=== PATIENT | male | born 1950 | race Caucasian/White ===

== ENCOUNTER → 2016-11-18 | Outpatient (CLI) | payer OTHER ==
[~2016-11-18] MED LIST: ACET-1138 PO; ALPHTAB9 PO; ASPEC81 PO; BIOF500T PO; CHOL100010 PO; CIPR1TAB11 PO; CLON0.5T3 PO; COENCAP9 PO; CYAN10005 PO; DUTA1CAP3 PO; GLYCINE PO; HYDR-5688 PO; LEVO1CAP6 PO; MAGN1TAB16 PO; METH1LOZ SL; OMEG10007 PO; ONDA8TAB6 PO; RXC5 PO; SACC250C11 PO; SNK PO; TAMS0.4C38 PO; ZOLP5TAB PO; [UNRECOGNIZED DRUG - CODE] EX; [UNRECOGNIZED DRUG - CODE] PO; [UNRECOGNIZED DRUG - OTHER] PO
--- NOTE | 2016-11-18 11:45 | DIAGNOSTIC IMAGING REPORT ---
SCROTAL ULTRASOUND CLINICAL HISTORY: Spermatocele. COMPARISON STUDY: Testicular ultrasound July 26, 2016. TECHNIQUE: Grayscale and color and duplex Doppler sonography of the scrotum was performed. FINDINGS: The right testis measures 5.1 x 2.2 x 3 cm and the left measures 5.5 x 2.5 x 3.4 cm. Color flow within each testis was symmetric. There was no testicular mass. There were a few tiny right epididymal cyst. Note is made of a 9 x 7.5 x 4.7 cm hypoechoic abnormality within the left epididymis that contained low level internal echoes and a thin septation. IMPRESSION: 1. Normal sonographic appearance the testes. 2. 9 x 7.5 x 4.7 cm abnormality within the left epididymis. The appearance favors a large spermatocele. This is either stable or minimally increased in size since ultrasound of July 26, 2016 when allowing for measurement variability. Electronically signed by: Lenard Elizondo M.D. 11/18/2016 11:43 AM Dictated Date/Time: 11/18/2016 11:41 AM
== END | disposition home or self-care (01) ==
LOC: C.ULTR 11:09
PROVIDERS: ATTEND Internal Medicine
DX: N43.40 Spermatocele of epididymis, unspecified (principal)

== ENCOUNTER → 2017-05-21 | Outpatient (CLI) | payer OTHER ==
[~2017-05-21] MED LIST changes: -ACET-1138 PO; -ASPEC81 PO; -CLON0.5T3 PO; -CYAN10005 PO; -ONDA8TAB6 PO; -RXC5 PO; -SNK PO; -[UNRECOGNIZED DRUG - CODE] EX
== END | disposition home or self-care (01) ==
LOC: C.LAB1850 13:46
PROVIDERS: ATTEND Urology
DX: N39.0 Urinary tract infection, site not specified (principal)

== ENCOUNTER 2017-05-27 09:08 | Day surgery (SDC) | payer OTHER ==
[2017-05-14 13:41] VITALS: BMI 25.0
--- NOTE | 2017-05-14 14:20 | PAT Medication Instructions ---
Service Date May 14, 2017. Current Home Medication List Acetylcarnitine Hcl (Nutrient) (Acetyl L-Carnitine), 1 CAP PO QAM Alpha-Lipoic Acid (Thioctic Ac (Alpha Lipoic Acid), 300 MG PO QAM Bioflavonoid Products (Kailey-C), PO QPM Cholecalciferol (Vitamin D), 2,500 INTER.UNIT PO QAM Coenzyme Q27-Tmfl Oil-Vitamin (Co-Q 10 [place]-3 Fish Oil), 200 MG PO QAM Dutasteride (Dutasteride), 1 CAP PO QAM Fish Oil ([place]-3), 1,000 MG PO QPM Levocarnitine L-Tartrate (L-Carnitine), 250 MG PO QAM Magnesium (Chelated Magnesium), 250 MG PO QAM Methylcobalamin (Methyl B-12), 1 DOSE SL QPM Saccharomyces Boulardii (Probiotic), PO QPM Tamsulosin Hcl (Flomax), 0.4 MG PO QPM Zolpidem Tartrate (Ambien), 5 MG PO HS PRN for Sleep [Glycine ], 1,000 MG PO QAM [Ps 150], 150 MG PO QAM Medication Instructions For Your Scheduled Surgery - Hold the following medications starting 05/14/17: Fish Oil ([place]-3), 1,000 MG PO QPM Coenzyme X97-Besm Oil-Vitamin (Co-Q 10 [place]-3 Fish Oil), 200 MG PO QAM - Hold the following medications the morning of surgery: Magnesium (Chelated Magnesium), 250 MG PO QAM Dutasteride (Dutasteride), 1 CAP PO QAM [Glycine ], 1,000 MG PO QAM Alpha-Lipoic Acid (Thioctic Ac (Alpha Lipoic Acid), 300 MG PO QAM Levocarnitine L-Tartrate (L-Carnitine), 250 MG PO QAM [Ps 150], 150 MG PO QAM Acetylcarnitine Hcl (Nutrient) (Acetyl L-Carnitine), 1 CAP PO QAM Cholecalciferol (Vitamin D), 2,500 INTER.UNIT PO QAM - Take the following medications as scheduled the night before surgery: Zolpidem Tartrate (Ambien), 5 MG PO HS PRN for Sleep Tamsulosin Hcl (Flomax), 0.4 MG PO QPM Saccharomyces Boulardii (Probiotic), PO QPM Methylcobalamin (Methyl B-12), 1 DOSE SL QPM Bioflavonoid Products (Kailey-C), PO QPM If you have any questions please call us at [phone] or [phone] or [phone]
--- NOTE | 2017-05-14 14:47 | DIAGNOSTIC IMAGING REPORT ---
CHEST PREADMISSION(PA/LAT) CLINICAL HISTORY: Preoperative chest COMPARISON STUDY: 05/23/2016 FINDINGS: The cardiac and mediastinal contours are normal. There is no evidence of focal pulmonary consolidation. There is no evidence of failure. No pleural effusions are visualized.[ IMPRESSION: No active disease in the chest. Electronically signed by: Samir De Souza M.D. 05/14/2017 2:46 PM Dictated Date/Time: 05/14/2017 2:45 PM
[2017-05-14 16:10] LABS: BASO % 0.8 %; BASO ABS # 0.04 K/uL (0-0.2); COMPLETE YES; HEMATOCRIT 43.5 % (42-52); LYMPH ABS # 1.38 K/uL (1.2-3.4); MEAN CELL VOLUME 89.1 fL (80-100); MEAN CORPUSCULAR HEMOGLOBIN 29.3 pg (25-34); MEAN CORPUSCULAR HGB CONC 32.9 g/dl (32-36); MEAN PLATELET VOLUME 10.9 fL (7.4-10.4); MONO % 7.2 %; PLATELET COUNT 132 K/uL (130-400); RED BLOOD COUNT 4.88 M/uL (4.7-6.1); WHITE BLOOD COUNT 5.11 K/uL (4.8-10.8)
[2017-05-14 16:14] LABS: URINE APPEARANCE CLOUDY (CLEAR); URINE BILIRUBIN NEG (NEG); URINE COLOR YELLOW; URINE NITRITE NEG (NEG); URINE SPECIFIC GRAVITY 1.027 (1.000-1.030); UROBILINOGEN NEG (NEG)
[2017-05-14 16:18] LABS: MANUAL MICROSCOPIC REQUIRED? NO; REVIEW REQ? NO
[2017-05-14 16:27] LABS: BUN/CREATININE RATIO 23.2 (10-20); CALCIUM 9.2 mg/dl (8.5-10.1); POTASSIUM 4.6 mmol/L (3.5-5.1)
[~2017-05-27] VITALS: Ht 188 cm; Wt 87.0 kg
[~2017-05-27 09:08] MED LIST changes: -CIPR1TAB11 PO; +CIPROFLOXACIN / D5W 400 MG IV SCH; -HYDR-5688 PO; +LACTATED RINGER'S 1000ML 1,000 ML IV SCH
[2017-05-27] MEDS ORDERED: CIPR1TAB11 PO (09:35)
[2017-05-27 09:36] VITALS: BP 148/90; PULSE 55; TEMP 36.8; O2SAT 98; Ht 188 cm; Wt 87.0 kg
[2017-05-27] MEDS ORDERED: PHENYLEPHRINE 100MCG/ML 5ML SYR IV PRN (11:15)
[2017-05-27] MEDS ORDERED: ATROPINE SULFATE 0.1 MG/ML 5ML SYR IV PRN (11:15)
[2017-05-27] MEDS ORDERED: HYDROmorphone INJ 2 MG/ML SYR/VIAL IV PRN (11:15)
[2017-05-27] MEDS ORDERED: EpHEDrine SULFATE INJ 50 MG/ML AMP IV PRN (11:15)
[2017-05-27] MEDS ORDERED: ONDANSETRON INJ 2 MG/ML 2 ML VIAL IV PRN (11:15)
--- NOTE | 2017-05-27 11:21 | History & Physical Bridge Note ---
H&P Re-Evaluation Bridge Note: I have examined the patient, reviewed the History & Physical and in the interval since the performance of the History & Physical I have noted the following changes of clinical significance: No changes noted Spermatocelectomy and flexible cystoscopy
[2017-05-27] MEDS ORDERED: MIDAZOLAM HCL 1 MG/ML 2ML VIAL ONE (11:22)
[2017-05-27] MEDS ORDERED: DEXAMETHASONE SOD INJ 4 MG/ML VIAL ONE (11:22)
[2017-05-27] MEDS ORDERED: LIDOCAINE HCL 2% 2 ML VIAL (20MG/ML) ONE (11:22)
[2017-05-27] MEDS ORDERED: ONDANSETRON INJ 2 MG/ML 2 ML VIAL ONE (11:22)
[2017-05-27] MEDS ORDERED: FENTANYL CITRATE INJ 50 MCG/1 ML 2 ML VIAL ONE ×2 (11:22→11:48)
[2017-05-27] MEDS ORDERED: PROPOFOL IV EMULSION 10 MG/ML 20 ML VIAL IV ONE (11:22)
[2017-05-27] MEDS ORDERED: BUPIVACAINE 0.5 % 5 MG/1 ML MPF 30ML VIAL ONE (11:26)
[2017-05-27] MEDS ORDERED: BACITRACIN OINT 15 GM TUBE ONE (11:26)
[2017-05-27] MEDS ORDERED: SODIUM CHLORIDE 0.9% 1000ML 1,000 ML IV SCH (13:03)
[2017-05-27] MEDS ORDERED: HYDR-5688 PO (13:05)
--- NOTE | 2017-05-27 13:08 | Discharge Instructions ---
Discharge Instructions Date of Service May 27, 2017. Admission Reason for Admission: Spermatocele Discharge Discharge Diagnosis / Problem: spermatocele Discharge Goals Goal(s): Decrease discomfort, Improve function, Increase independence, Improve disease control, Prevent Disease Progression Activity Recommendations Activity Limitations: per Instructions/Follow-up section Lifting Limitations: no more than 25 pounds Exercise/Sports Limitations: gradually increase as tolerated May Resume Sexual Activity: when tolerated Shower/Bathe: tomorrow Driving or Machine Use: resume 1 day after discharge Please keep your follow-up appointment scheduled for tomorrow morning . Instructions / Follow-Up Instructions / Follow-Up Please apply bacitracin to the incision twice per day for the next 2 weeks Discharge Diet Recommended Diet: Regular Diet Procedures Procedures Performed: Left Spermatocelectomy and hydrocelectomy, with Flexible Cystoscopy Pending Studies Studies pending at discharge: no Medical Emergencies . Who to Call and When: Medical Emergencies: If at any time you feel your situation is an emergency, please call 911 immediately. . Non-Emergent Contact Non-Emergency issues call your: Urologist Call Non-Emergent contact if: you have a fever, temperature is above 101.5, your pain is not controlled, your pain is worsening, wound has increased drainage, wound has increased redness, wound has increased pain . . "Provider Documentation" section prepared by Rob Flores. . VTE Core Measure Inpt VTE Proph given/why not?: Treatment not indicated [place] Drug Monitoring Program Search Results: patient reviewed within database, no issues identified
[2017-05-27] MEDS ORDERED: ACETAMINOPHEN 325 MG TAB PO PRN (13:15)
[2017-05-27] MEDS ORDERED: OXYCODONE/ACETAMINOPHEN 5-325 TAB PO PRN ×2 (13:15)
--- NOTE | 2017-05-27 13:16 | [facility] Operative Report ---
Operative Report Operative Date May 27, 2017. Pre-Operative Diagnosis Left spermatocele Post-Operative Diagnosis left spermatocele and left hydrocele; bladder diverticuli Procedure(s) Performed Left Spermatocelectomy and hydrocelectomy, with Flexible Cystoscopy Surgeon Dr Cantu Respiratory Therapist Surgeon(s) none Estimated Blood Loss 5ml Findings Left spermatocele 2; small left hydrocele; BPH with lateral lobe hypertrophy; numerous bladder diverticuli; erythema and inflammation of the right lateral bladder wall Specimens a. left hydrocele b. left spermatocele Drains 18 Danish coud catheter; Hardaway drain Anesthesia Gen. Complication(s) None Disposition Recovery Room / PACU (stable) Indications Large left spermatocele; prior urinary retention Description of Procedure William Mejia was identified in the preoperative holding area appropriate informed consents were reviewed and completed and the patient was transported to the operating suite. Upon arrival he received appropriate preoperative antibiotics in the form of ciprofloxacin, general anesthesia was induced, and he was sterilely prepped and draped in standard fashion. Beginning the case by making a midline raphae incision and the scrotum. Length of this incision was proximally 4 cm. I carefully dissected through dartos fascia until I was able to deliver the left testis including hydrocele and spermatocele through the incision. I then gently skeletonize the hydrocele prior to opening and draining the hydrocele, a small amount of redundant tunical vaginalis was excised and sent off the table as a specimen. And then further dissected the spermatoceles until I was able to identify and neck connecting to the epididymis. There were 2 distinct spermatoceles each of these had a separate communication to the epididymis and each was sutured suture-ligated. I confirmed excellent hemostasis throughout the scrotum and around the testis and subsequently placed a drain to the most dependent portion of the left hemiscrotum. A string was sutured in place using a 3-0 nylon. I then proceeded to close the scrotal wall in 2 layers with dartos fascia reapproximated using 0 Vicryl followed by closure of the skin with vertical mattress fashion stitches of 3-0 chromic. I infiltrated the skin and the cord with half percent Marcaine. We then moved on to the second portion of the procedure the cystoscopy. Cystoscopic findings: Patient has no evidence of urethral stricture disease he does however have bilobar hypertrophy of his prostate and a modestly high bladder neck. I performed a full inspection of the bladder identifying several diverticuli surrounding the bladder neck the 2 largest diverticuli were on the right. Ureteral orifices were identified neither was involved with a diverticulum. There were no clear tumors visualized throughout the bladder, however he has significant inflammation and edema adjacent to one of the diverticuli on the right. I inspected all of these diverticuli carefully and saw no tumors within them. He has recently been treated for urinary tract infection and I presume that this inflammation and edema are secondary to this infection, however in the future I will reevaluate these to ensure complete resolution. If his symptoms determine need he would be a candidate for either a TURP or a urolift procedure. Before concluding the case I placed an 18 Danish coud catheter drain the bladder. Patient was subsequently extubated and taken to the PACU in stable condition. I attest to the content of the Intraoperative Record and any orders documented therein. Any exceptions are noted below.
[2017-05-27 13:35] VITALS: BP 144/80; PULSE 61; TEMP 36.6; O2SAT 98
--- NOTE | 2017-05-27 13:49 | Anesthesiology Progress Note ---
Anesthesia Post Op Note Date & Time May 27, 2017 at 13:48 Vital Signs Pain Intensity: 2 Vital Signs Past 12 Hours Date Time Temp Pulse Resp B/P (MAP) Pulse Ox O2 Delivery O2 Flow Rate FiO2 05/27/17 13:25 36.3 51 10 135/85 98 Room Air 05/27/17 13:15 54 18 132/84 95 Room Air 05/27/17 13:05 54 12 135/84 95 Room Air 05/27/17 12:55 59 10 135/84 95 Room Air 05/27/17 12:47 36.2 66 13 137/84 98 Mask 10 05/27/17 09:36 36.8 55 18 148/90 (109) 98 Room Air Notes Mental Status: alert / awake / arousable, participated in evaluation Pt Amnestic to Procedure: Yes Nausea / Vomiting: adequately controlled Pain: adequately controlled Airway Patency, RR, SpO2: stable & adequate BP & HR: stable & adequate Hydration State: stable & adequate Anesthetic Complications: no major complications apparent
[2017-05-27 14:05] VITALS: BP 152/84; PULSE 55; O2SAT 98
[2017-05-27 14:35] VITALS: BP 149/82; PULSE 52; TEMP 36.5; O2SAT 98
== END 2017-05-27 15:45 | disposition home or self-care (01) ==
LOC: C.ACU 09:08
PROVIDERS: ATTEND Urology
DX: N43.3 Hydrocele, unspecified (principal); N43.42 Spermatocele of epididymis, multiple; N32.3 Diverticulum of bladder; N40.0 Benign prostatic hyperplasia without lower urinary tract symptoms; N13.8 Other obstructive and reflux uropathy; R33.9 Retention of urine, unspecified; G62.9 Polyneuropathy, unspecified; R73.03 Prediabetes; G25.81 Restless legs syndrome; G62.0 Drug-induced polyneuropathy; Z87.440 Personal history of urinary (tract) infections; Z96.649 Presence of unspecified artificial hip joint; Z80.0 Family history of malignant neoplasm of digestive organs; Z82.49 Family history of ischemic heart disease and other diseases of the circulatory system

== ENCOUNTER → 2017-08-07 | Outpatient (CLI) | payer OTHER ==
[~2017-08-07] MED LIST changes: +CIPR1TAB11 PO; -CIPROFLOXACIN / D5W 400 MG IV SCH; +HYDR-5688 PO; -LACTATED RINGER'S 1000ML 1,000 ML IV SCH
--- NOTE | 2017-08-08 06:01 | PAP/PSG TECHNICIAN REPORT ---
[facility] Tubing Supervisor Polysomnogram Report Study name: None Report date: 08/08/2017 Study date: 08/07/2017 Referring Physician: DR. GONZÁLES PRO Name: KWAME MORALES Interpreting Physician: Kieran Wiseman M.D. Date of : 1950 Tubing Supervisor: Danielle Maya RPSGT. Sex: Male Age: 67 StudyType: PSG Weight: 205 lbs Height: 67 years, Height 6' 2" BMI: 26.32 Medications: Dutasteride 0.5 mg, Tamsulosin 0.4 mg, Acetyl L- Carnitine 250 mg, CoQ10 100 mg, Omeag 3 1000 mg, Zolpidem Tartrate 10 mg, Alpha-Lipoic 100 mg, Chelated Magnesium, Vitamin E20-Pdzab Acid 500-400 MCG, Vitamin D 3 2000 units Patient History 67 yr. old male here tonight for a diagnostic sleep study in room 4. Patient complains of EDs, and needing a nap daily. He also snores. Patients [place] Sleepiness Scale Score is 14/24. Parameters Monitored NPSG: E1-M2, E2-M1, Fp1-M2, Fp2-M1, F3-M2, F4-M2, F4-M1, C3-M2, C4-M2, C4-M1, O1-M2, O2-M2, O2-M1, T3-M2, T4-M1, P3-M2, P4-M1, CHIN1, CHIN2, HR, EKG, Legs, PFLOW, SNOR, FLOW, CFLOW, Tidal Volume, THOR, ABDO, SpO2, PLTH, CPRESS, ETCO2 Wave, ETCO2, pH Sleep Architecture Sleep Stages Time at Lights Off 10:28:38 PM STAGES Time (min.) TST (%) Time at Lights On 5:42:08 AM Wake 114.0 -- Total Recording Time (TRT) 433.50 min. N1 24.0 8 Total Sleep Period (TSP) 393.0 min. N2 201.0 63 Total Sleep Time (TST) 319.5min. N3 40.0 13 Awake Time 114.0 min. REM 54.5 17 Wake after Sleep Onset 74.5 min. Sleep Efficiency (SE) 74 % Sleep Onset Latency (TERRI) 39.5 min. Number of Stage 1 Shifts None Awakenings 23 Stage Changes 70 Number of REM periods 7 REM 54.5 17 REM Latency 116.0 min. NREM 265.0 83 Body Position Analysis Supine Right Left Side Prone Vertical Total Sleep Time (min.) 187.2 104.0 54.5 158.55 0.0 33.0 Total Sleep Time (%) 50% 33% 17% 50 0% N/A% Total Sleep Time REM (min.) 17.1 37.4 0.0 None 0.0 0.0 Total Sleep Time NREM (min.) 143.8 66.7 54.5 None 0.0 0.0 Intermittent Wake (min.) 26.2 39.3 15.4 None 0.0 33.0 Total Sleep Period (%) 47% None None None None None Arousals Myoclonus (PLM) * Events Count Index Events Count Index Spontaneous 1 0 Events Awake (PLMW) 113 59.5 Respiratory 1 0.4 Events Asleep w/ Arousal (PLMA) 17 3.2 PLM 17 3 Events Asleep w/o Arousal (PLMS) 244 45.8 Snoring 3 1 Total Asleep 261 49.0 Total 22 4 Total 374 52 Respiratory Analysis * CA OA MA CH H RERA Total Count 0 0 0 0 22 0 22 Index 0.0 0.0 0.0 0 4.1 0 4.1 Mean Duration 0.0 0.0 0.0 0.00 23.1 0.0 23.1 Longest Duration 0.0 0.0 0.0 0.00 0.0 0.0 34.8 Respiratory Event Summary Total Supine ~Supine Right Left Prone REM NREM Apneas Count 0 0 0 0 0 N/A 0 0 Index 0.0 0 0 0.0 0.0 N/A 0 0 Hypopneas (4% Desat) Count 22 10 12 10 2 N/A 8 14 Index 4.1 3.7 5 5.8 2.2 N/A 8.8 3.2 Apneas & All Hypopneas Count 22 10 12 10 2 N/A 8 14 Index 4.1 4 5 6 2 N/A 8.8 3.2 Respiratory Events (Gut Carrier+All Hyp+RERA) Count 22 10 12 10 2 N/A 8 14 Index 4.1 4 5 5.8 2.2 N/A 8.8 3.2 Respiratory Related Arousal Count 1 10 1 1 0 N/A 1 1 Index 0.4 0 0 1 0 N/A 1 0 Snoring Analysis Supine Right Left Prone REM NREM Total Snore duration 0.5 min Snores count 9 17 1 N/A 9 18 27 Snore mean duration 1.2 Sec Snores index 3 10 1 N/A 9.9 4.1 5.1 TST with snoring (%) 0.2% Desaturation Event Summary: Minimum %SpO2 Event Count Mean/Min/Max Duration(sec.) Desaturation Index % Time In Bed > 90 29 34.5 / 17.5 / 60.0 15.1 27.0 86 - 90 22 32.9 / 10.3 / 56.8 4.4 70.4 81 - 85 2 37.0 / 30.8 / 43.3 10.8 2.6 76 - 80 0 N/A 0.0 0.0 71 - 75 0 N/A 0.0 0.0 66 - 70 0 N/A 0.0 0.0 61 - 65 0 N/A 0.0 0.0 56 - 60 0 N/A 0.0 0.0 51 - 55 0 N/A 0.0 0.0 < 50 0 N/A 0.0 0.0 Total REM NREM Awake <50% 0.0 min. 0.0 min. 0.0 min. 0.0 min. 51 - 60% 0.0 min. 0.0 min. 0.0 min. 0.0 min. 61 - 70% 0.0 min. 0.0 min. 0.0 min. 0.0 min. 71 - 80% 0.1 min. 0.0 min. 0.0 min. 0.1 min. 81 - 90% 312.6 min. 51.2 min. 233.5 min. 27.9 min. 91 - 100% 115.6 min. 3.3 min. 31.5 min. 80.8 min. Average 89 88 88 91 Minimum SpO2 80 81 81 80 Desaturation Event Index 5.4 9.9 4.3 6.8 # Desat. Events below 89% 29 9 14 6 Time(%) with Saturation below 89% 42.1 6.5 34.4 1.3 Time(min.) with Saturation below 89% 180.5 27.7 147.2 5.6 Time (mins) REM (mins) NREM (mins) % of TST SpO2 Below 90% 27 9 N18 75.9 SpO2 Below 88% 12 0 0 29 Heart Rate Analysis Min (bpm) Max (bpm) Average (bpm) Awake 44 81 53 NREM 43 78 49 REM 44 65 51 Overall 43 78 49 Supplemental O2 Values Minimum O2 level: None Value Start Time End Time Tubing Supervisor Comments Mr. Morales slept in the right, left, and supine positions. No cardiac arrhythmia and PLMs noted. No bruxism noted. Snoring was noted and scored as a 1 on a scale of 0 through 5. (0=no snoring, 5=snoring loud enough to be heard through a closed door or down the [address] way)Mr. Morales awoke to use the restroom once during the night. Mr. Morales stated, that was a bad night, but I have those sometimes. The final report will be interpreted and signed by a sleep physician. The completed physician report will then be placed in the patient medical record. Therapy (cm H2O) 0 TIB (min.) 433.5 TST (min.) 319.5 Sleep Onset (min.) 39.5 REM Onset From Sleep (min.) 116.0 Sleep Efficiency % 74 Wakefulness (%) 26 Wakefulness (min.) 114.0 NREM 1 (%) 8 NREM 1 (min.) 24.0 NREM 2 (%) 63 NREM 2 (min.) 201.0 NREM 3 (%) 13 NREM 3 (min.) 40.0 REM (%) 17 REM (min.) 54.5 # Arousals 22 Arousal Index 4 # Snore 27 Snore Index 5.1 AHI 4.1 AHI Supine 4 AHI Non-Supine 5 NREM AHI 3.2 REM AHI 8.8 RDI 4.1 # Obstructive Apnea 0 # Central Apnea 0 # Mixed Apnea 0 # Hypopneas 22 RERAs 0 Total Respiratory Events 24 Time Below SpO2 89% (min.) 175.0 Mean NREM SpO2 (%) 88 Mean REM SpO2 (%) 88 Mean Sleep SpO2 (%) 88 Min NREM SpO2 (%) 81 Min REM SpO2 (%) 81 Position Supine (min.) 187.2 Position Non-supine (min.) 158.5 LM Index Sleep 49.0 LM Index NREM 57.1 LM Index REM 9.9 Mean Heart Rate (bpm) 49 Min Heart Rate (bpm) 43
--- NOTE | 2017-08-08 14:25 | POLYSOMNOGRAPH REPORT ---
CLINICAL DATA: 67-year-old male with BMI of 26.[address] Charles Mario with complaints of excessive daytime sleepiness and needing a nap every day. He also has loud snoring. His [place] sleepiness score was elevated at 14/24. SLEEP ARCHITECTURE: Total sleep period was 393 minutes. Total sleep time was 319.5 minutes divided between 265 minutes of non-REM sleep and 54.5 minutes of REM sleep. Sleep onset latency was slightly delayed at 39.5 minutes. REM latency was 116 minutes. Sleep efficiency was 74%. Wake after sleep onset was 74.5 minutes. Sleep consisted of stage N1 8%, stage N2 63%, stage N3 15%, and REM 17%. AROUSAL DATA: 22 arousals recorded for an index of 4 per hour. 17 are due to PLMS events. PLM DATA: 261 limb movements during sleep were noted for an index of 49 per hour with arousal index of 3.2 per hour. This indicates moderately elevated limb movements during sleep. RESPIRATORY DATA: There was no evidence of clinically significant sleep apnea/hypopnea. The AHI was 4. There were 22 hypopneic episodes with a mean duration of 23.1 seconds. OXIMETRY DATA: Very mild nocturnal hypoxemia was seen. Oxygen reny was 81%. Mean saturation was 89%. Time below 88% was 12 minutes. EKG: Heart rates ranged from 43-78 beats per minute. No arrhythmias were noted. SENIOR SOFTWARE QUALITY ENGINEER'S COMMENTS: The patient slept in the right, left, and supine positions. No bruxism was noted. Snoring was mild rated 1 on a scale of 1-5. IMPRESSION: 1. No evidence of clinically significant sleep apnea/hypopnea with an AHI = 4. 2. Very mild nocturnal hypoxemia. 3. Moderately elevated limb movements during sleep, possibly consistent with PLMD. RECOMMENDATIONS: There is no evidence that CPAP is needed. The patient should continue to practice good sleep hygiene. If he does have symptoms of restless leg syndrome during the day, evaluation for reversible causes for RLS/PLMD could be considered. Clinical correlation is needed. HANNAH
== END | disposition home or self-care (01) ==
LOC: C.NEUR 20:00
PROVIDERS: ATTEND Internal Medicine
DX: R40.0 Somnolence (principal); G47.61 Periodic limb movement disorder

== ENCOUNTER 2017-12-22 15:25 | Observation (INO) | payer OTHER ==
[~2017-12-22] VITALS: Ht 188 cm; Wt 76.3 kg
[~2017-12-22 15:25] MED LIST changes: -HYDR-5688 PO
[2017-12-22] MEDS ORDERED: CHOL100010 PO (16:55)
[2017-12-22] MEDS ORDERED: CEFAZOLIN SOD 1 GM VIAL IV ONE (17:00)
[2017-12-22] MEDS ORDERED: CYM/30 PO (17:01)
[2017-12-22] MEDS ORDERED: CEFAZOLIN SOD 1000MG/7.5 ML IV PUSH IV ONE ×2 (17:15→17:16)
[2017-12-22] MEDS ORDERED: SODIUM CHLORIDE 0.9% 1000ML 1,000 ML IV STA (17:25)
[2017-12-22 17:38] LABS: CALCIUM 8.9 mg/dl (8.5-10.1); CREATININE 1.05 mg/dl (0.60-1.40); POTASSIUM 3.9 mmol/L (3.5-5.1)
[2017-12-22 17:49] LABS: BASO % 0.5 %; BASO ABS # 0.04 K/uL (0-0.2); HEMATOCRIT 42.7 % (42-52); HEMOGLOBIN 14.5 g/dL (14.0-18.0); IG# 0.02 K/uL (0.00-0.02); LYMPH % 8.5 %; LYMPH ABS # 0.65 K/uL (1.2-3.4); MEAN CELL VOLUME 90.5 fL (80-100); MEAN CORPUSCULAR HEMOGLOBIN 30.7 pg (25-34); MEAN PLATELET VOLUME 10.4 fL (7.4-10.4); MONO % 9.1 %; MONO ABS # 0.69 K/uL (0.11-0.59); NEUT % 81.6 %; NEUT ABS # 6.22 K/uL (1.4-6.5); PLATELET COUNT 94 K/uL (130-400); RED CELL DISTRIBUTION WIDTH CV 12.4 % (11.5-14.5); RED CELL DISTRIBUTION WIDTH SD 41.4 fL (36.4-46.3); WHITE BLOOD COUNT 7.62 K/uL (4.8-10.8)
[2017-12-22] MEDS ORDERED: VANCOMYCIN INJ 1,500 MG in SODIUM CHLORIDE 0.9% 500ML 500 ML IV STA (18:06)
[2017-12-22] MEDS ORDERED: VANCOMYCIN CONSULT ACTIVE PRN ×2 (18:15→20:15)
[2017-12-22] MEDS ORDERED: MIDAZOLAM HCL 1 MG/ML 2ML VIAL ONE (18:25)
[2017-12-22] MEDS ORDERED: FENTANYL CITRATE INJ 50 MCG/1 ML 2 ML VIAL ONE ×2 (18:25→19:50)
--- NOTE | 2017-12-22 18:27 | Surgery Consultation ---
Consultation Date of Consultation: Dec 22, 2017. Attending Physician: History of Present Illness The patient is a 67 year old male who presents to the Emergency Room with complaints of a worsening fever and infection on his left leg. The patient states that he thinks that he was bit by a bug two weeks ago since he had some seepage and then scabbing, though it seemed to be getting better. Yesterday it got very red, swollen, and tender, and he got a fever up to 101. He states that he saw is PCP this morning, and they sent him to the ED for evaluation. He denies any cough, runny nose, sore throat, and urinary burning. The patient has a history of a his replacement. I saw pt at ER, I reviewed pt's H/P with pt and his , Social History Smoking Status: Never Smoker Smokeless Tobacco Use: No Alcohol Use: occasionally Drug Use: none Allergies Coded Allergies: NO KNOWN DRUG ALLERGIES (Verified Allergy, Unknown, NONE, 12/22/17) POLLEN (Verified Allergy, Unknown, RED EYES, 12/22/17) Home Medications Scheduled Acetylcarnitine Hcl (Nutrient) (Acetyl L-Carnitine), 1 CAP PO QAM Alpha-Lipoic Acid (Thioctic Ac (Alpha Lipoic Acid), 300 MG PO QAM Bioflavonoid Products (Kailey-C), PO QPM Cholecalciferol (Vitamin D), 1,000 UNITS PO DAILY Coenzyme O63-Jciy Oil-Vitamin (Co-Q 10 [place]-3 Fish Oil), 200 MG PO QAM Duloxetine HCl (Cymbalta), 30 MG PO DAILY Dutasteride (Dutasteride), 1 CAP PO QAM Fish Oil ([place]-3), 1,000 MG PO QPM Magnesium (Chelated Magnesium), 250 MG PO QAM Methylcobalamin (Methyl B-12), 1 DOSE SL QPM Tamsulosin Hcl (Flomax), 0.4 MG PO QPM Scheduled PRN Zolpidem Tartrate (Ambien), 5 MG PO HS PRN for Sleep Current Inpatient Medications Current Inpatient Medications Medications (Trade) Dose Ordered Sig/Jessica Route Start Time Stop Time Status Last Admin Dose Admin Sodium Chloride 1,000 ml @ 999 mls/hr Q1H1M STAT IV 12/22/17 17:25 12/22/17 18:25 12/22/17 17:48 999 MLS/HR Vancomycin HCl 1500 mg/Sodium Chloride 530 ml @ 200 mls/hr ONE STAT IV 12/22/17 18:06 12/22/17 20:44 Miscellaneous Information (Consult) 1 ea UD PRN N/A 12/22/17 18:15 01/21/18 18:14 Review of Systems Constitutional: + fever Eyes: No worsening of vision, No eye pain, No redness, No discharge, No diplopia, No problem reported ENT: No hearing loss, No unusual epistaxis, No nasal symptoms, No sore throat, No tinnitus, No dental problems, No trouble swallowing, No problem reported Respiratory: No cough, No sputum, No wheezing, No shortness of breath, No dyspnea on exertion, No dyspnea at rest, No hemoptysis, No problem reported Cardiovascular: No chest pain, No orthopnea, No PND, No edema, No claudication , No palpitations, No problem reported Abdomen: No pain, No nausea, No vomiting, No diarrhea, No constipation, No GI bleeding, No problem reported Musculoskeletal: + problem reported (Bilt hip replacement) Genitourinary - Male: + urinary retention Neurologic: No memory loss, No paralysis, No weakness, No numbness/tingling, No vertigo, No balance problems, No problem reported Psychiatric: No depression symptoms, No anhedonism, No anxiety, No insomnia, No substance abuse, No problem reported Endocrine: No fatigue, No excessive thirst, No excessive urination, No problem reported Hematologic / Lymphatic: No abnormal bleeding/bruising, No clotting problems, No swollen lymph nodes, No night sweats, No problem reported Physical Exam Date Time Temp Pulse Resp B/P (MAP) Pulse Ox O2 Delivery O2 Flow Rate FiO2 12/22/17 17:22 58 20 137/78 95 Room Air 12/22/17 15:53 37.7 82 20 128/87 92 Room Air General Appearance: WD/WN, + mild distress Head: normocephalic Eyes: normal inspection ENT: normal ENT inspection Neck: supple, no JVD Respiratory/Chest: chest non-tender Cardiovascular: no gallop, no JVD, no murmur Abdomen/GI: soft, no organomegaly Extremities/Musculoskelatal: no calf tenderness, normal capillary refill ( redeness and tenderness at left upper leg, [id number], ) Skin: warm/dry Lymphatic: no adenopathy Laboratory Results Last 24 Hours Test 12/22/17 17:04 12/22/17 17:15 White Blood Count 7.62 K/uL Red Blood Count 4.72 M/uL Hemoglobin 14.5 g/dL Hematocrit 42.7 % Mean Corpuscular Volume 90.5 fL Mean Corpuscular Hemoglobin 30.7 pg Mean Corpuscular Hemoglobin Concent 34.0 g/dl Platelet Count 94 K/uL Mean Platelet Volume 10.4 fL Neutrophils (%) (Auto) 81.6 % Lymphocytes (%) (Auto) 8.5 % Monocytes (%) (Auto) 9.1 % Eosinophils (%) (Auto) 0.0 % Basophils (%) (Auto) 0.5 % Neutrophils # (Auto) 6.22 K/uL Lymphocytes # (Auto) 0.65 K/uL Monocytes # (Auto) 0.69 K/uL Eosinophils # (Auto) 0.00 K/uL Basophils # (Auto) 0.04 K/uL RDW Standard Deviation 41.4 fL RDW Coefficient of Variation 12.4 % Immature Granulocyte % (Auto) 0.3 % Immature Granulocyte # (Auto) 0.02 K/uL Platelet Estimate DECREASED Sodium Level 135 mmol/L Potassium Level 3.9 mmol/L Chloride Level 101 mmol/L Carbon Dioxide Level 28 mmol/L Anion Gap 6.0 mmol/L Blood Urea Nitrogen 18 mg/dl Creatinine 1.05 mg/dl Est Creatinine Clear Calc Drug Dose 75.7 ml/min Estimated GFR () 85.9 Estimated GFR (Non- 74.1 BUN/Creatinine Ratio 16.7 Random Glucose 116 mg/dl Calcium Level 8.9 mg/dl Lactic Acid Level 0.9 mmol/L Assessment & Plan Assessment, pt is a 67 year old male who presents to ER with one day history fever and left leg pain, IMP: left leg infection with cellulitis and abscess Plan, I recommend to do I/D abscess on left upper leg, D/W benefits, risks and alternatives of the procedure, the risks - infection, bleeding, sepsis, pt and his understood, they agree with the plan, I answered all questions.
[2017-12-22] MEDS ORDERED: LIDOCAINE HCL 2% 2 ML VIAL (20MG/ML) ONE (18:32)
[2017-12-22] MEDS ORDERED: PROPOFOL IV EMULSION 10 MG/ML 20 ML VIAL IV ONE (18:32)
[2017-12-22] MEDS ORDERED: FENTANYL CITRATE INJ 50 MCG/1 ML 2 ML VIAL IV PRN (18:45)
[2017-12-22] MEDS ORDERED: ATROPINE SULFATE 0.1 MG/ML 5ML SYR IV PRN (18:45)
[2017-12-22] MEDS ORDERED: FLUMAZENIL 0.1 MG/1 ML 10 ML VIAL IV PRN (18:45)
[2017-12-22] MEDS ORDERED: MEPERIDINE HCL 25 MG/ML CARP IV PRN (18:45)
[2017-12-22] MEDS ORDERED: ONDANSETRON INJ 2 MG/ML 2 ML VIAL IV PRN ×2 (18:45→20:15)
[2017-12-22] MEDS ORDERED: LABETALOL HCL IV 5 MG/ML 20ML IV PRN (18:45)
[2017-12-22] MEDS ORDERED: HYDROmorphone INJ 2 MG/ML SYR/VIAL IV PRN (18:45)
[2017-12-22] MEDS ORDERED: EpHEDrine SULFATE INJ 50 MG/ML AMP IV PRN (18:45)
[2017-12-22] MEDS ORDERED: NALOXONE HCL 0.4 MG/1 ML VIAL/CARP IV PRN (18:45)
[2017-12-22] MEDS ORDERED: PHENYLEPHRINE 100MCG/ML 5ML SYR IV PRN (18:45)
[2017-12-22] MEDS ORDERED: BUPIVACAINE/EPINEPHRINE 0.5% MPF 1:200,000 30 ML VIAL ONE ×2 (18:49→19:19)
--- NOTE | 2017-12-22 18:49 | History & Physical Bridge Note ---
H&P Re-Evaluation Bridge Note: I have examined the patient, reviewed the History & Physical and in the interval since the performance of the History & Physical I have noted the following changes of clinical significance: No changes noted
[2017-12-22] MEDS ORDERED: LIDOCAINE HCL 1% 20 ML VIAL ONE (19:44)
[2017-12-22] MEDS ORDERED: BUPIVACAINE 0.5 % 5 MG/1 ML MPF 30ML VIAL ONE (19:45)
[2017-12-22] MEDS ORDERED: KETOROLAC TROMETHAMINE 30 MG/ML VIAL ONE (19:50)
[2017-12-22] MEDS ORDERED: BACITRACIN OINT 15 GM TUBE ONE (19:52)
--- NOTE | 2017-12-22 19:59 | [facility] Post Operative Brief Note ---
Immediate Operative Summary Operative Date Dec 22, 2017. Pre-Operative Diagnosis left leg infection with cellulitis and abscess Post-Operative Diagnosis left leg infection with cellulitis and abscess Procedure(s) Performed I/D abscess on left leg Surgeon Rod Jaramillo Print Binding And Finishing Worker Surgeon(s) deployment technician Estimated Blood Loss 5ml Findings Consistent with Post-Op Diagnosis Fluids (cc crystalloids) 500ml Specimens wound culture Drains None packing Anesthesia Type IV Sedat Cons RN Only Complication(s) none Disposition Accompanied Pt To Recover: yes Disposition: Recovery Room / PACU
--- NOTE | 2017-12-22 20:07 | Anesthesiology Progress Note ---
Anesthesia Post Op Note Date & Time Dec 22, 2017 at 20:07 Vital Signs Pain Intensity: 2.0 Vital Signs Past 12 Hours Date Time Temp Pulse Resp B/P (MAP) Pulse Ox O2 Delivery O2 Flow Rate FiO2 12/22/17 18:42 55 20 161/88 95 12/22/17 17:22 58 20 137/78 95 Room Air 12/22/17 15:53 37.7 82 20 128/87 92 Room Air Notes Mental Status: alert / awake / arousable, participated in evaluation Pt Amnestic to Procedure: Yes Nausea / Vomiting: adequately controlled Pain: adequately controlled Airway Patency, RR, SpO2: stable & adequate BP & HR: stable & adequate Hydration State: stable & adequate Anesthetic Complications: no major complications apparent
[2017-12-22] MEDS ORDERED: ACETAMINOPHEN 325 MG TAB PO PRN (20:15)
[2017-12-22] MEDS ORDERED: HYDROmorphone INJ 1 MG/ML SYR IV PRN (20:15)
[2017-12-22] MEDS ORDERED: OXYCODONE/ACETAMINOPHEN 5-325 TAB PO PRN (20:15)
[2017-12-22] MEDS ORDERED: IV FLUIDS COMPLETED PRN (20:30)
[2017-12-22 20:50] VITALS: BP 129/73; PULSE 56; TEMP 37; O2SAT 95; Ht 188 cm; Wt 76.3 kg
[2017-12-22] MEDS ORDERED: PIPERACILL/TAZOBAC CONSULT ACTIVE PRN (21:15)
[2017-12-22 21:20] VITALS: BP 116/72; PULSE 63; TEMP 37; O2SAT 95
[2017-12-22] MEDS ORDERED: PIPERACILL/TAZOBAC IV 3.375 GM in DEXTROSE 5% 100ML IV ONE (21:30)
[2017-12-22 21:50] VITALS: BP 122/73; PULSE 62; TEMP 37; O2SAT 95
--- NOTE | 2017-12-22 21:52 | EMERGENCY ROOM VISIT NOTE ---
History Report prepared by Vinod: Jerrod Quick Under the Supervision of: Breanna CatalanO. First contact with patient: 16:36 Chief Complaint: FEVER Stated Complaint: INSECT BITE ON LEG AND FEVER History of Present Illness The patient is a 67 year old male who presents to the Emergency Room with complaints of a worsening fever and infection on his left leg. The patient states that he thinks that he was bit by a bug two weeks ago since he had some seepage and then scabbing, though it seemed to be getting better. Yesterday it got very red, swollen, and tender, and he got a fever up to 101. He states that he saw is PCP this morning, and they sent him to the ED for evaluation. He denies any cough, runny nose, sore throat, and urinary burning. The patient has a history of a hip replacement. Source of History: patient Onset: yesterday Position: leg (left), other (global) Quality: other (fever) Timing: worsening Associated Symptoms: No sorethroat, No cough Review of Systems See HPI for pertinent positives & negatives. A total of 10 systems reviewed and were otherwise negative. Past Medical & Surgical Medical Problems: (1) Abscess of leg, left Surgical Problems: (1) History of hip replacement (2) Post-operative state Social History Smoking Status: Never Smoker Marital Status: Housing Status: lives with family Occupation Status: employed Current/Historical Medications Scheduled Acetylcarnitine Hcl (Nutrient) (Acetyl L-Carnitine), 1 CAP PO QAM Alpha-Lipoic Acid (Thioctic Ac (Alpha Lipoic Acid), 300 MG PO QAM Bioflavonoid Products (Kailey-C), PO QPM Cholecalciferol (Vitamin D), 1,000 UNITS PO DAILY Coenzyme N24-Dedx Oil-Vitamin (Co-Q 10 [place]-3 Fish Oil), 200 MG PO QAM Duloxetine HCl (Cymbalta), 30 MG PO DAILY Dutasteride (Dutasteride), 1 CAP PO QAM Fish Oil ([place]-3), 1,000 MG PO QPM Magnesium (Chelated Magnesium), 250 MG PO QAM Methylcobalamin (Methyl B-12), 1 DOSE SL QPM Tamsulosin Hcl (Flomax), 0.4 MG PO QPM Scheduled PRN Zolpidem Tartrate (Ambien), 5 MG PO HS PRN for Sleep Allergies Coded Allergies: NO KNOWN DRUG ALLERGIES (Verified Allergy, Unknown, NONE, 12/22/17) POLLEN (Verified Allergy, Unknown, RED EYES, 12/22/17) Physical Exam Vital Signs Date Time Temp Pulse Resp B/P (MAP) Pulse Ox O2 Delivery O2 Flow Rate FiO2 12/22/17 20:15 59 16 115/75 93 Nasal Cannula 3 12/22/17 20:05 38.3 67 16 129/72 95 Nasal Cannula 3 12/22/17 18:42 55 20 161/88 95 12/22/17 17:22 58 20 137/78 95 Room Air 12/22/17 15:53 37.7 82 20 128/87 92 Room Air Physical Exam GENERAL: Sitting up in bed, alert, well appearing, well nourished, no distress, non-toxic EYE EXAM: normal conjunctiva. OROPHARYNX: no exudate, no erythema, lips, buccal mucosa, and tongue normal and mucous membranes are moist NECK: supple, no nuchal rigidity, no adenopathy, non-tender LUNGS: Clear to auscultation. Normal chest wall mechanics HEART: no murmurs, S1 normal and S2 normal ABDOMEN: abdomen soft, non-tender, normo-active bowel sounds, no masses, no rebound or guarding. SKIN: left mid lateral thigh as a 12cm x 12xm area of erythema and induration with warmth without and fluctuance. No drainage. BEDSIDE US: Shows cobble stoning with no loculated fluid collection UPPER EXTREMITIES: upper extremities are grossly normal. LOWER EXTREMITIES: No pitting edema. NEURO EXAM: Normal sensorium, cranial nerves II-XII grossly intact, normal speech, no gross weakness of arms, no gross weakness of legs. Medical Decision & Procedures Laboratory Results 12/22/17 17:04 Red Blood Count 4.72, Mean Corpuscular Volume 90.5, Mean Corpuscular Hemoglobin 30.7, Mean Corpuscular Hemoglobin Concent 34.0, Mean Platelet Volume 10.4, Neutrophils (%) (Auto) 81.6, Lymphocytes (%) (Auto) 8.5, Monocytes (%) (Auto) 9.1, Eosinophils (%) (Auto) 0.0, Basophils (%) (Auto) 0.5, Neutrophils # (Auto) 6.22, Lymphocytes # (Auto) 0.65, Monocytes # (Auto) 0.69, Eosinophils # (Auto) 0.00, Basophils # (Auto) 0.04 12/22/17 17:04 Test 12/22/17 17:04 12/22/17 17:15 White Blood Count 7.62 K/uL (4.8-10.8) Red Blood Count 4.72 M/uL (4.7-6.1) Hemoglobin 14.5 g/dL (14.0-18.0) Hematocrit 42.7 % (42-52) Mean Corpuscular Volume 90.5 fL (80-100) Mean Corpuscular Hemoglobin 30.7 pg (25-34) Mean Corpuscular Hemoglobin Concent 34.0 g/dl (32-36) Platelet Count 94 K/uL (130-400) Mean Platelet Volume 10.4 fL (7.4-10.4) Neutrophils (%) (Auto) 81.6 % Lymphocytes (%) (Auto) 8.5 % Monocytes (%) (Auto) 9.1 % Eosinophils (%) (Auto) 0.0 % Basophils (%) (Auto) 0.5 % Neutrophils # (Auto) 6.22 K/uL (1.4-6.5) Lymphocytes # (Auto) 0.65 K/uL (1.2-3.4) Monocytes # (Auto) 0.69 K/uL (0.11-0.59) Eosinophils # (Auto) 0.00 K/uL (0-0.5) Basophils # (Auto) 0.04 K/uL (0-0.2) RDW Standard Deviation 41.4 fL (36.4-46.3) RDW Coefficient of Variation 12.4 % (11.5-14.5) Immature Granulocyte % (Auto) 0.3 % Immature Granulocyte # (Auto) 0.02 K/uL (0.00-0.02) Platelet Estimate DECREASED Anion Gap 6.0 mmol/L (3-11) Est Creatinine Clear Calc Drug Dose 75.7 ml/min Estimated GFR () 85.9 Estimated GFR (Non- 74.1 BUN/Creatinine Ratio 16.7 (10-20) Calcium Level 8.9 mg/dl (8.5-10.1) Lyme Disease IgG Antibody NEG (NEG) Lyme Disease IgM Antibody NEG (NEG) Lactic Acid Level 0.9 mmol/L (0.4-2.0) Laboratory results per my review. Medications Administered Medications (Trade) Dose Ordered Sig/Jessica Route Start Time Stop Time Status Last Admin Dose Admin Cefazolin Sodium (Ancef Inj) 2 mg ONE ONCE IV 12/22/17 17:00 12/22/17 17:01 DC 12/22/17 17:00 2 MG Sodium Chloride 1,000 ml @ 999 mls/hr Q1H1M STAT IV 12/22/17 17:25 12/22/17 18:25 DC 12/22/17 17:48 999 MLS/HR Vancomycin HCl 1500 mg/Sodium Chloride 530 ml @ 200 mls/hr ONE STAT IV 12/22/17 18:06 12/22/17 20:44 DC 12/22/17 18:29 200 MLS/HR Lidocaine HCl (Xylocaine 1% Inj (Local)) 20 ml STK-MED ONCE .ROUTE 12/22/17 19:44 12/22/17 19:45 DC 12/22/17 20:09 2 ML Bupivacaine HCl (Marcaine 0.5% MPF Inj) 30 ml STK-MED ONCE .ROUTE 12/22/17 19:45 12/22/17 19:46 DC 12/22/17 20:09 2 ML Bacitracin (Bacitracin Oint) 45 appln STK-MED ONCE .ROUTE 12/22/17 19:52 12/22/17 19:53 DC 12/22/17 20:11 45 APPLN ED Course ED COURSE: Vital signs were reviewed and showed normal vitals The patients medical record was reviewed The above diagnostic studies were performed and reviewed. ED treatments and interventions as stated above. 1636: The patient was evaluated in room B6. A complete history and physical examination was performed. 1700: Ancef 2mg IV 1725: Sodium Chloride 1000 ml @ 999 mls/hr IV 1800: Upon reevaluation, the patient is doing well, and the bedside ultrasound showed no fluid.I discussed my findings with the patient and he understands and agrees with the treatment plan. Based on the patients age, coexisting illnesses, exam and lab findings the decision to treat as an inpatient was made. The patient remained stable while under my care. The patient will be evaluated for further management. 1805: I reviewed the patient's case with Dr. Clint PRESSLEY Surgery. He will evaluate the patient for further management. Medical Decision Differential diagnosis includes etiologies such as cellulitis, abscess, MRSA infection, DVT, necrotizing fasciitis, dermatitis, drug eruption, as well as others were entertained. Patient is a 67-year-old male with an abscess on his left thigh. On exam and has induration and erythema. With bedside ultrasound there was cobblestoning but no focal fluid collection. Patient was given IV antibiotics. CBC all BMP was unremarkable. Lyme was negative. Patient was evaluated by general surgery. They did elect taken to the OR for a I&D and wash out. Patient was updated at bedside. Medication Reconcilliation Current Medication List: was personally reviewed by me Blood Pressure Screening Patient's blood pressure: Normal blood pressure Consults Time Called: 1800 Consulting Physician: Dr. Clint PRESSLEY Surgery Returned Call: 1805 I reviewed the patient's case with Dr. Clint PRESSLEY Surgery. He will evaluate the patient for further management. Impression Primary Impression: Cellulitis Scribe Attestation The scribe's documentation has been prepared under my direction and personally reviewed by me in its entirety. I confirm that the note above accurately reflects all work, treatment, procedures, and medical decision making performed by me. Departure Information Dispostion Being Evaluated By Surgeon Referrals No Doctor, Assigned (PCP) Patient Instructions My [facility] Problem Qualifiers Primary Impression: Cellulitis Site of cellulitis: unspecified site Qualified Codes: L03.90 - Cellulitis, unspecified
[2017-12-22] MEDS ORDERED: NURSING VERBAL MED ORDER ONE (22:00)
--- NOTE | 2017-12-22 22:28 | OPERATIVE REPORT ---
DATE OF OPERATION: 12/22/2017 PREOPERATIVE DIAGNOSIS: Abscess of left leg with cellulitis. POSTOPERATIVE DIAGNOSIS: Same. PROCEDURE: I&D abscess on the left leg. SURGEON: Rod Jaramillo MD. ANESTHESIA: Conscious sedation plus local. ESTIMATED BLOOD LOSS: About 5 mL. FINDINGS: Abscess with cellulitis of the left leg. COMPLICATIONS: None. INDICATIONS FOR THE PROCEDURE: This is a 67-year-old gentleman who presented to the ED with 2-week history of left leg pain and today the patient developed fever with significant redness and tenderness on the left leg. The patient diagnosed with cellulitis with abscess. I recommended to do the I&D of the abscess on the left leg. I did talk to the patient about the benefit and risk, alternate procedure. I indicated the risks may include but not limited such as bleeding, infection, sepsis. The patient understands. He signed informed consent and I answered all questions. DETAILS OF PROCEDURE: We brought the patient to the OR, put the patient on the supine position. The patient received 1 gram of Vancomycin IV for prophylactic antibiotic. The patient received conscious sedation by anesthesiology. The patient's left leg was prepped and draped in routine sterile fashion. After time out, reexamined patient there was redness and tenderness about 10 x 5 cm on the left side of the leg laterally. Then I used 1% lidocaine mixed with 0.5% Marcaine to infiltrate around the abscess. Then I made about a 3 cm incision and opened the subcutaneous layer. There were some small pus coming out. We did send wound culture. Once we cleaned up, we used Kerlix for packing the wound. Hemostasis was obtained. Then we put the dressing on. The patient tolerated the procedure well. All the instrument, needle and sponge count correct x2 at the end of case. After the procedure, I did talk to the patient's family member about the OR finding and procedure we did. The patient transferred to recovery room in stable condition. I attest to the content of the Intraoperative Record and any orders documented therein. Any exceptions are noted below. MTDD
[2017-12-22] MEDS: LACTATED RINGER'S 1000ML 1,000 ML IV SCH (22:33)
[2017-12-22 22:50] VITALS: BP 120/72; PULSE 63; TEMP 36.5; O2SAT 95
[2017-12-22 23:50] VITALS: BP 122/76; PULSE 63; TEMP 37.2; O2SAT 94
[2017-12-23] VITALS (7 sets, daily range): BP systolic 107–136; BP diastolic 69–75; PULSE 45–73; TEMP 36.8–39.5; O2SAT 92–97
[2017-12-23] MEDS: PIPERACILL/TAZOBAC IV 3.375 GM in DEXTROSE 5% 100ML 100 ML IV SCH ×3 (01:53→18:42)
[2017-12-23] MEDS: LACTATED RINGER'S 1000ML 1,000 ML IV SCH ×2 (05:30→23:44)
[2017-12-23] MEDS ORDERED: CEFAZOLIN SOD 2000MG/15 ML IV PUSH IV ONE (06:00)
[2017-12-23 06:01] LABS: HEMATOCRIT 38.1 % (42-52); HEMOGLOBIN 12.9 g/dL (14.0-18.0); MEAN CELL VOLUME 90.1 fL (80-100); MEAN CORPUSCULAR HEMOGLOBIN 30.5 pg (25-34); MEAN CORPUSCULAR HGB CONC 33.9 g/dl (32-36); RED CELL DISTRIBUTION WIDTH CV 12.7 % (11.5-14.5); RED CELL DISTRIBUTION WIDTH SD 41.9 fL (36.4-46.3); WHITE BLOOD COUNT 7.42 K/uL (4.8-10.8)
[2017-12-23 06:14] LABS: MEAN PLATELET VOLUME 10.4 fL (7.4-10.4); PLATELET COUNT 86 K/uL (130-400)
[2017-12-23 06:30] LABS: ALBUMIN 3.1 gm/dl (3.4-5.0); CREATININE 1.1 mg/dl (0.60-1.40); POTASSIUM 3.7 mmol/L (3.5-5.1)
[2017-12-23 06:47] LABS: BASO % 0.3 %; BASO ABS # 0.02 K/uL (0-0.2); EOS % 0.1 %; EOS ABS # 0.01 K/uL (0-0.5); IG# 0.02 K/uL (0.00-0.02); LYMPH % 6.7 %; MONO % 6.5 %; MONO ABS # 0.48 K/uL (0.11-0.59); NEUT % 86.1 %; NEUT ABS # 6.39 K/uL (1.4-6.5)
[2017-12-23] MEDS: VANCOMYCIN INJ 1,250 MG in SODIUM CHLORIDE 0.9% 250ML 250 ML IV SCH ×2 (08:59→22:02)
--- NOTE | 2017-12-23 10:19 | Surgery Progress Note ---
Surgery Progress Note Date of Service Dec 23, 2017. Subjective Post OP Day: 1 (s/p incision and drainage of left lower extremity abscess) Feeling better Pain controlled Swelling and redness has improved, "do not see any streaking anymore" no nausea or vomiting tolerating diet Objective Vital Signs: Date Time Temp Pulse Resp B/P (MAP) Pulse Ox O2 Delivery O2 Flow Rate FiO2 12/23/17 07:35 Room Air 12/23/17 06:51 37.1 60 18 114/75 (88) 95 Room Air 12/23/17 05:04 37.5 12/23/17 03:50 39.1 12/23/17 03:40 39.5 73 18 136/75 (95) 92 Room Air 12/22/17 23:50 37.2 63 18 122/76 (91) 94 Room Air 12/22/17 23:18 Room Air 12/22/17 22:50 36.5 63 16 120/72 (88) 95 Room Air 12/22/17 21:50 37.0 62 18 122/73 (89) 95 Room Air 12/22/17 21:20 37.0 63 18 116/72 (87) 95 Nasal Cannula 2.0 12/22/17 20:50 Nasal Cannula 2.0 12/22/17 20:50 37.0 56 16 129/73 95 Nasal Cannula 2.0 12/22/17 20:35 36.8 63 18 122/67 97 Nasal Cannula 3 12/22/17 20:25 54 16 121/67 97 Nasal Cannula 3 12/22/17 20:15 59 16 115/75 93 Nasal Cannula 3 12/22/17 20:05 38.3 67 16 129/72 95 Nasal Cannula 3 12/22/17 18:42 55 20 161/88 95 12/22/17 17:22 58 20 137/78 95 Room Air 12/22/17 15:53 37.7 82 20 128/87 92 Room Air General Appearance: WD/WN, no apparent distress Head: normocephalic, atraumatic Neck: trachea midline Respiratory/Chest: no respiratory distress, no accessory muscle use Extremities: + pertinent finding (dressing intact and removed, the wound has packing present, not removed. Surrounding erythmea improving, no further streaking. Tender to palpation. There is some possible early necrotic tissue medial to incision site but still viable.) Laboratory Results: Results Past 24 Hours Test 12/22/17 17:04 12/22/17 17:15 12/23/17 05:15 Range/Units White Blood Count 7.62 7.42 4.8-10.8 K/uL Red Blood Count 4.72 4.23 4.7-6.1 M/uL Hemoglobin 14.5 12.9 14.0-18.0 g/dL Hematocrit 42.7 38.1 42-52 % Mean Corpuscular Volume 90.5 90.1 80-100 fL Mean Corpuscular Hemoglobin 30.7 30.5 25-34 pg Mean Corpuscular Hemoglobin Concent 34.0 33.9 32-36 g/dl Platelet Count 94 86 130-400 K/uL Mean Platelet Volume 10.4 10.4 7.4-10.4 fL Neutrophils (%) (Auto) 81.6 86.1 % Lymphocytes (%) (Auto) 8.5 6.7 % Monocytes (%) (Auto) 9.1 6.5 % Eosinophils (%) (Auto) 0.0 0.1 % Basophils (%) (Auto) 0.5 0.3 % Neutrophils # (Auto) 6.22 6.39 1.4-6.5 K/uL Lymphocytes # (Auto) 0.65 0.50 1.2-3.4 K/uL Monocytes # (Auto) 0.69 0.48 0.11-0.59 K/uL Eosinophils # (Auto) 0.00 0.01 0-0.5 K/uL Basophils # (Auto) 0.04 0.02 0-0.2 K/uL RDW Standard Deviation 41.4 41.9 36.4-46.3 fL RDW Coefficient of Variation 12.4 12.7 11.5-14.5 % Immature Granulocyte % (Auto) 0.3 0.3 % Immature Granulocyte # (Auto) 0.02 0.02 0.00-0.02 K/uL Platelet Estimate DECREASED Sodium Level 135 137 136-145 mmol/L Potassium Level 3.9 3.7 3.5-5.1 mmol/L Chloride Level 101 104 98-107 mmol/L Carbon Dioxide Level 28 27 21-32 mmol/L Anion Gap 6.0 6.0 3-11 mmol/L Blood Urea Nitrogen 18 17 7-18 mg/dl Creatinine 1.05 1.10 0.60-1.40 mg/dl Est Creatinine Clear Calc Drug Dose 75.7 72.3 ml/min Estimated GFR () 85.9 81.2 Estimated GFR (Non- 74.1 70.1 BUN/Creatinine Ratio 16.7 15.7 10-20 Random Glucose 116 137 70-99 mg/dl Calcium Level 8.9 8.0 8.5-10.1 mg/dl Lyme Disease IgG Antibody NEG NEG Lyme Disease IgM Antibody NEG NEG Lactic Acid Level 0.9 0.4-2.0 mmol/L Total Bilirubin 1.1 0.2-1 mg/dl Aspartate Amino Transf (AST/SGOT) 14 15-37 U/L Alanine Aminotransferase (ALT/SGPT) 21 12-78 U/L Alkaline Phosphatase 44 45-117 U/L Total Protein 6.0 6.4-8.2 gm/dl Albumin 3.1 3.4-5.0 gm/dl Globulin 2.9 2.5-4.0 gm/dl Albumin/Globulin Ratio 1.1 0.9-2 Microbiology Results 12/22/17 Blood Culture, Received Pending 12/22/17 Blood Culture, Received Pending 12/22/17 Gram Stain - Final, Resulted 12/22/17 Bacterial Culture, Resulted Pending Assessment & Plan POD # 1 s/p Incision and drainage of left lower extremity abscess - febrile last night. Tmax of 39.5 - no leukocytosis - pain controlled - cellulitis improving with IV antibiotics Plan: Continue current pain management Continue IV antibiotics Encourage ambulation and OOB to chair Await culture results (blood and wound cultures pending) Wound nurse consult tomorrow for daily packing changes, will need follow-up with wound care center. Dressing changed today but packing was not changed, will need changed tomorrow repeat am labs Continue regular diet Start PO ambien, Duloxetine, and Flomax Dr. Jaramillo has seen and examined patient, agrees with above
[2017-12-23] MEDS ORDERED: ZOLPIDEM TARTRATE 5 MG TAB PO PRN (10:30)
--- NOTE | 2017-12-23 11:01 | Pharmacy Progress Note ---
Pharmacy Antibiotic Consult Date of Service: Dec 23, 2017. Pharmacy Dosing Scope Pharmacy is consulted to initiate vancomycin IV dosing therapy, order appropriate labs and adjust drug dose/frequency. Subjective The patient is a 67 year old male admitted on Dec 22, 2017 at 20:17. I&D of LLE abscess on 12/22. Objective Height (Feet): 6 Height (Inches): 2.00 Weight (Kilograms): 76.300 Lab Results (24hrs): Test 12/22/17 17:04 12/22/17 17:15 12/23/17 05:15 White Blood Count 7.62 K/uL (4.8-10.8) 7.42 K/uL (4.8-10.8) Red Blood Count 4.72 M/uL (4.7-6.1) 4.23 M/uL (4.7-6.1) Hemoglobin 14.5 g/dL (14.0-18.0) 12.9 g/dL (14.0-18.0) Hematocrit 42.7 % (42-52) 38.1 % (42-52) Mean Corpuscular Volume 90.5 fL (80-100) 90.1 fL (80-100) Mean Corpuscular Hemoglobin 30.7 pg (25-34) 30.5 pg (25-34) Mean Corpuscular Hemoglobin Concent 34.0 g/dl (32-36) 33.9 g/dl (32-36) Platelet Count 94 K/uL (130-400) 86 K/uL (130-400) Mean Platelet Volume 10.4 fL (7.4-10.4) 10.4 fL (7.4-10.4) Neutrophils (%) (Auto) 81.6 % 86.1 % Lymphocytes (%) (Auto) 8.5 % 6.7 % Monocytes (%) (Auto) 9.1 % 6.5 % Eosinophils (%) (Auto) 0.0 % 0.1 % Basophils (%) (Auto) 0.5 % 0.3 % Neutrophils # (Auto) 6.22 K/uL (1.4-6.5) 6.39 K/uL (1.4-6.5) Lymphocytes # (Auto) 0.65 K/uL (1.2-3.4) 0.50 K/uL (1.2-3.4) Monocytes # (Auto) 0.69 K/uL (0.11-0.59) 0.48 K/uL (0.11-0.59) Eosinophils # (Auto) 0.00 K/uL (0-0.5) 0.01 K/uL (0-0.5) Basophils # (Auto) 0.04 K/uL (0-0.2) 0.02 K/uL (0-0.2) RDW Standard Deviation 41.4 fL (36.4-46.3) 41.9 fL (36.4-46.3) RDW Coefficient of Variation 12.4 % (11.5-14.5) 12.7 % (11.5-14.5) Immature Granulocyte % (Auto) 0.3 % 0.3 % Immature Granulocyte # (Auto) 0.02 K/uL (0.00-0.02) 0.02 K/uL (0.00-0.02) Platelet Estimate DECREASED Sodium Level 135 mmol/L (136-145) 137 mmol/L (136-145) Potassium Level 3.9 mmol/L (3.5-5.1) 3.7 mmol/L (3.5-5.1) Chloride Level 101 mmol/L (98-107) 104 mmol/L (98-107) Carbon Dioxide Level 28 mmol/L (21-32) 27 mmol/L (21-32) Anion Gap 6.0 mmol/L (3-11) 6.0 mmol/L (3-11) Blood Urea Nitrogen 18 mg/dl (7-18) 17 mg/dl (7-18) Creatinine 1.05 mg/dl (0.60-1.40) 1.10 mg/dl (0.60-1.40) Est Creatinine Clear Calc Drug Dose 75.7 ml/min 72.3 ml/min Estimated GFR () 85.9 81.2 Estimated GFR (Non- 74.1 70.1 BUN/Creatinine Ratio 16.7 (10-20) 15.7 (10-20) Random Glucose 116 mg/dl (70-99) 137 mg/dl (70-99) Calcium Level 8.9 mg/dl (8.5-10.1) 8.0 mg/dl (8.5-10.1) Lyme Disease IgG Antibody NEG (NEG) Lyme Disease IgM Antibody NEG (NEG) Lactic Acid Level 0.9 mmol/L (0.4-2.0) Total Bilirubin 1.1 mg/dl (0.2-1) Aspartate Amino Transf (AST/SGOT) 14 U/L (15-37) Alanine Aminotransferase (ALT/SGPT) 21 U/L (12-78) Alkaline Phosphatase 44 U/L (45-117) Total Protein 6.0 gm/dl (6.4-8.2) Albumin 3.1 gm/dl (3.4-5.0) Globulin 2.9 gm/dl (2.5-4.0) Albumin/Globulin Ratio 1.1 (0.9-2) Micro Results: 12/22 blood x2 pending 12/22 abscess leg pending Recent Pertinent Medications Item Value Date Time Vancomycin HCl 275 ml @ 125 mls/hr 12/23/17 0900 1250 mg/Sodium Q12H/IV 12/23/17 0859 Chloride Piperacillin Sod/ 115 ml @ 28.7 mls/hr 12/23/17 0200 Tazobactam Sod Q8H/IV 12/23/17 0153 3.375 gm/Dextrose Piperacillin Sod/ 115 ml @ 230 mls/hr 12/22/17 2130 Tazobactam Sod NOW ONCE/IV 12/22/17 2206 3.375 gm/Dextrose Vancomycin HCl 530 ml @ 200 mls/hr 12/22/17 1806 1500 mg/Sodium ONE STAT/IV 12/22/17 1829 Chloride Cefazolin Sodium 2 mg 12/22/17 1700 (Ancef Inj) ONE ONCE/IV 12/22/17 1700 Assessment & Plan Loading dose: vancomycin 1500 mg IV X 1 dose (modified loading dose) then: vancomycin 1250 mg IV every 12 hours. Goal peak level estimate: between 25-40 mcg/mL. Goal trough level estimate: between 15-20 mcg/mL. Trough has been ordered for: 12/24/17 before 0900 dose. Pharmacy will continue to follow and will adjust dose/frequency as necessary. Thank you
--- NOTE | 2017-12-23 15:34 | HISTORY & PHYSICAL EXAMINATION ---
DATE OF ADMISSION: 12/23/2017 This is level 2 inpatient consultation, 25 minutes. PHYSICIAN REQUESTING CONSULTATION: Dr. Jaramillo. REASON FOR CONSULTATION: Medical management. HISTORY OF PRESENT ILLNESS: the patient is a 67-year-old white male admitted to Dr. Jaramillo's service because of left posterior thigh abscess. The patient reports he thought was bit by a insect 2 weeks ago. Then there were some seepages and scrubbings in the skin. the rash getting bigger yesterday was red, swollen and tender. He was having spiking fever up to 101 at home. He was seen by a PCP and then referred to Emergency Room. The patient was admitted to Dr. Jaramillo' service, had I&D done. In the Emergency Room, Lyme disease checked; IgG, IgM was negative. The patient currently is on vanco and Zosyn IV. REVIEW OF SYSTEMS: Denied fever or chills; denies cough, sputum, chest pain; denied palpitations; no extremity swelling. Denied nausea or vomiting, abdominal pain, diarrhea, constipation; denied dysuria, urgency or frequency. Denied facial droop or slurry speeches, or focal weakness. PAST MEDICAL HISTORY: Includes BPH and anxiety. ALLERGIES: ALLERGY TO POLLEN. PAST SURGICAL HISTORY: Includes hip replacement. SOCIAL HISTORY: Denied alcohol disorder, denied illicit drug abuse; denied tobacco abuse. The patient lives with family. He is employed. REVIEW OF SYSTEMS: Please see HPI. Otherwise, 14-point organ system review is negative. CURRENT MEDICATIONS: Include nutrient 1 cap p.o. q.a.m., alpha lipoic acid 300 mg p.o. q.a.m.., vitamin D 1000 units p.o. daily, CoQ10 200 mg p.o. q.a.m., Cymbalta 30 mg p.o. daily, fish oil 1000 mg p.o. q.p.m., magnesium 250 mg p.o. q.a.m., vitamin B12 one dose q.p.m., Flomax 0.4 mg p.o. q.p.m., Ambien 5 mg p.o. at bedtime p.r.n. for sleep. PHYSICAL EXAMINATION: VITAL SIGNS: Temperature 36.8, pulse 72, respirations 18, blood pressure 107/69, pulse ox was 97% on room air. GENERAL: the patient is a white male, awake, alert and orientated, conversational, follows all commands. HEENT: head was normocephalic. Pupils equal and respond to the light. Ears normal. Nose was normal. NECK: Supple. Thyroid no enlargement. Trachea in the midline. HEART: Regular rate and rhythm. S1, S2. LUNGS: Decreased breathing sounds. There were no wheezing, rhonchi or crackles. ABDOMEN: Soft and nontender. Bowel sound was positive. GENITOURINARY AND RECTAL: Deferred. LOWER EXTREMITIES: Left posterior thigh has dress in place because of post I & D, There was no obvious oozing. Bilateral lower extremity, no swelling, pulses symmetric. No clubbing, no cyanosis. NEUROLOGICAL EVALUATION: Cranial nerves II-XII was intact. There was no local deficits. STUDIES: WBC 7.4, hemoglobin 12, platelets 86. Sodium 137, potassium 3.7, chloride 17, creatinine 1.1. Blood glucose 137. AST 14, ALT 21. IgG and IgM were negative antibody. ASSESSMENT: 1. A 67-year-old white male admitted to Dr. Jaramillo's service because of left posterior thigh abscess. The patient with fever last night, possible cellulitis. 2. History of benign prostatic hyperplasia. 3. History of anxiety. 4. Thrombocytopenia, etiology unknown. PLAN: 1. For the posterior thigh abscess, cellulitis, primary team has put him on IV antibiotic, which includes vancomycin and Zosyn. I agreed and will continued. Recommended follow up with culture and sensitivities and adjust antibiotic accordingly. Also, recommended the patient need to be follow up with PCP to recheck lyme IgG and IgM in 4-6 weeks because the patient's current skin rashes may be from tick bite. although IgG IgM current checking is negative, but because of antibody formation will take 4-6 week if there is tick bit, therefore will need to be repeated. 2. The patient has thrombocytopenia, etiology unknown, we will watch and I advised to follow up with PCP in this aspect. Would recommended only need SCDs for DVT prophylaxis, we not give heparin product for now because of thrombocytopenia, I will order lab tomorrow morning to watch PLT level as well. 3. History of benign prostatic hyperplasia: Continue current medication. Thank you for chance to involve in the care of this patient, will continue to followup. HANNAH
[2017-12-23] MEDS ORDERED: TAMSULOSIN HCL 0.4 MG CAP PO SCH (21:00)
[2017-12-23] MEDS ORDERED: NURSING VERBAL MED ORDER ONE (22:30)
[2017-12-24 08:07] VITALS: BP 112/80; PULSE 44; TEMP 36.9; O2SAT 95
[2017-12-24 08:18] VITALS: O2SAT 95
[2017-12-24] MEDS ORDERED: VANCOMYCIN TROUGH ONE (08:30)
[2017-12-24] MEDS ORDERED: DULOXETINE (CYMBALTA) 30 MG CAP PO SCH (09:00)
--- NOTE | 2017-12-24 09:25 | Discharge Instructions ---
Discharge Instructions Date of Service Dec 24, 2017. Admission Reason for Admission: Abscess Of Leg, Left Discharge Discharge Diagnosis / Problem: same Discharge Goals Goal(s): Decrease discomfort, Improve function Activity Recommendations Activity Limitations: per Instructions/Follow-up section No strenuous activity until cleared by surgeon No submerging incision underwater until healed (no swimming, bathing, or hot tubs) No driving while taking narcotic pain medication . Instructions / Follow-Up Instructions / Follow-Up You may shower when you get home. Try to keep left lower wound dry from any water if possible. Cover with plastic when showering. Replace outer dressing as needed to keep clean and dry. You will have a Follow-up with [facility]ound Care [facility] Friday 1 pm for packing change and then further appointments will be set up that day. Wound Clinic address: [address] [place] [address], [address] [place] [address] walking and light activity is encouraged you will be given narcotic pain medication as needed for moderate to severe pain. This medication may make you drowsy. You may take extra strength Tylenol/ Ibuprofen as needed for mild pain. You will be given 7 day course of Bactrim, take as directed and finish entire course Follow-up in surgical office in 1 week, please call office at [phone] to make an appointment Current Hospital Diet Patient's current hospital diet: Regular Diet Discharge Diet Recommended Diet: Regular Diet Procedures Procedures Performed: Incision and Drainage of left leg abcess Pending Studies Studies pending at discharge: yes List of pending studies: Final culture and blood culture results Medical Emergencies . Who to Call and When: Medical Emergencies: If at any time you feel your situation is an emergency, please call 911 immediately. . Non-Emergent Contact Non-Emergency issues call your: Surgeon Call Non-Emergent contact if: you have a fever, temperature is above 101, your pain is not controlled, your pain is worsening, your pain is unusual for you, wound has increased drainage, wound has increased redness, wound has increased pain . "Provider Documentation" section prepared by Serena Ledbetter. . VTE Core Measure Inpt VTE Proph given/why not?: SCD's [place] Drug Monitoring Program Search Results: patient reviewed within database, no issues identified
[2017-12-24] MEDS: VANCOMYCIN INJ 1,250 MG in SODIUM CHLORIDE 0.9% 250ML 250 ML IV SCH (09:29)
[2017-12-24] MEDS ORDERED: OXYC-57 PO (09:35)
[2017-12-24] MEDS ORDERED: SULF800T23 PO (09:35)
[2017-12-24 09:42] LABS: HEMATOCRIT 42.9 % (42-52); HEMOGLOBIN 14.6 g/dL (14.0-18.0); MEAN CELL VOLUME 90.3 fL (80-100); MEAN CORPUSCULAR HEMOGLOBIN 30.7 pg (25-34); RED CELL DISTRIBUTION WIDTH CV 12.5 % (11.5-14.5); RED CELL DISTRIBUTION WIDTH SD 41.3 fL (36.4-46.3); WHITE BLOOD COUNT 6.56 K/uL (4.8-10.8)
[2017-12-24 10:00] LABS: MEAN PLATELET VOLUME 10.3 fL (7.4-10.4); PLATELET COUNT 86 K/uL (130-400)
[2017-12-24 10:10] LABS: CALCIUM 8.8 mg/dl (8.5-10.1); CREATININE 0.97 mg/dl (0.60-1.40); POTASSIUM 3.6 mmol/L (3.5-5.1)
[2017-12-24 10:22] VITALS: BP 112/80; PULSE 44; TEMP 36.9; O2SAT 95
--- NOTE | 2017-12-24 11:47 | Surgery Progress Note ---
Surgery Progress Note Date of Service Dec 24, 2017. Subjective Post OP Day: 2 (s/p incision and drainage of LLE abscess) + feeling well, + bowel movement, + pain controlled, + diet (regular diet), No complaints, No nausea, No vomiting Objective Vital Signs: Date Time Temp Pulse Resp B/P (MAP) Pulse Ox O2 Delivery O2 Flow Rate FiO2 12/24/17 10:22 36.9 44 22 95 Nasal Cannula 12/24/17 08:18 95 Room Air 12/24/17 08:07 36.9 44 22 112/80 (91) 95 Room Air 12/24/17 07:15 Room Air 12/23/17 23:49 Room Air 12/23/17 22:53 37.1 45 16 130/75 (93) 93 Room Air 12/23/17 15:37 Room Air 12/23/17 15:08 37.1 65 16 129/73 (91) 92 Room Air General Appearance: WD/WN, no apparent distress Head: normocephalic, atraumatic Neck: trachea midline Respiratory/Chest: no respiratory distress, no accessory muscle use Laboratory Results: Results Past 24 Hours Test 12/24/17 09:28 Range/Units White Blood Count 6.56 4.8-10.8 K/uL Red Blood Count 4.75 4.7-6.1 M/uL Hemoglobin 14.6 14.0-18.0 g/dL Hematocrit 42.9 42-52 % Mean Corpuscular Volume 90.3 80-100 fL Mean Corpuscular Hemoglobin 30.7 25-34 pg Mean Corpuscular Hemoglobin Concent 34.0 32-36 g/dl RDW Standard Deviation 41.3 36.4-46.3 fL RDW Coefficient of Variation 12.5 11.5-14.5 % Platelet Count 86 130-400 K/uL Mean Platelet Volume 10.3 7.4-10.4 fL Sodium Level 137 136-145 mmol/L Potassium Level 3.6 3.5-5.1 mmol/L Chloride Level 103 98-107 mmol/L Carbon Dioxide Level 28 21-32 mmol/L Anion Gap 6.0 3-11 mmol/L Blood Urea Nitrogen 14 7-18 mg/dl Creatinine 0.97 0.60-1.40 mg/dl Est Creatinine Clear Calc Drug Dose 81.9 ml/min Estimated GFR () 94.6 Estimated GFR (Non- 81.6 BUN/Creatinine Ratio 14.8 10-20 Random Glucose 144 70-99 mg/dl Calcium Level 8.8 8.5-10.1 mg/dl Magnesium Level 2.3 1.8-2.4 mg/dl Vancomycin Level Trough 7.1 SEE COMMENT mcg/ml LLE: surrounding erythema much improved. Wound health granulation tissue present after packing removed. Replaced. There is some early ischemic tissue just medial to the incision. May need debridement however will wait to see with wound healing. Packing replaced and dressing reapplied. Assessment & Plan POD # 2 s/p Incision and drainage of left lower extremity abscess - afebrile - no leukocytosis - pain controlled - cellulitis improving with IV antibiotics - wound culture and Blood culture x 2 no growth to date Plan: Continue current pain management Finish IV Vancomycin prior to discharge Encourage ambulation and OOB to chair Wound nurse consult today, will follow up with wound care center on Friday 1 pm for packing changes and wound care. Discharge home this afternoon Rx for PO Percocet prn Rx for 7 days of PO Bactrim BID Dr. Jaramillo has seen and examined patient, agrees with above
--- NOTE | 2017-12-24 16:09 | Progress Note ---
Subjective Date of Service: Dec 24, 2017. 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, review of inpatient medication list Doing well, up and walk, no complaint, he reported has been active physically, sometimes feel heart rate was low when he checked by himself, denies dizziness , no any history of chest pain, local abscess S/P I&D in left posterior thigh has no any pain, Problem List Medical Problems: (1) Cellulitis Status: Acute Review of Systems Constitutional: No fever, No chills, No sweats, No weight loss, No weakness, No fatigue, No problem reported Eyes: No worsening of vision, No eye pain, No redness, No discharge, No diplopia ENT: No hearing loss, No unusual epistaxis, No nasal symptoms, No sore throat, No tinnitus, No dental problems, No trouble swallowing Respiratory: No cough, No sputum, No wheezing, No shortness of breath, No dyspnea on exertion, No dyspnea at rest, No hemoptysis Cardiac: No chest pain, No orthopnea, No PND, No edema, No claudication, No palpitations Abdomen: No pain, No nausea, No vomiting, No diarrhea, No constipation Musculoskeletal: No joint pain, No muscle pain, No swelling, No calf pain Male : No dysuria, No urinary frequency, No incontinence, No nocturia more than once/night, No slowing stream, No hematuria Neurologic: No memory loss, No paralysis, No weakness, No numbness/tingling, No vertigo, No balance problems Psychiatric: No depression symptoms, No anhedonism, No anxiety, No insomnia, No substance abuse Heme: No abnormal bleeding/bruising, No clotting problems, No swollen lymph nodes, No night sweats Endo: No fatigue, No excessive thirst, No excessive urination Skin: + rash, No itch, No new/changing skin lesions, No color change, No bleeding Objective Vital Signs Date Time Temp Pulse Resp B/P (MAP) Pulse Ox O2 Delivery O2 Flow Rate FiO2 12/24/17 10:22 36.9 44 22 95 Nasal Cannula 12/24/17 08:18 95 Room Air 12/24/17 08:07 36.9 44 22 112/80 (91) 95 Room Air 12/24/17 07:15 Room Air 12/23/17 23:49 Room Air 12/23/17 22:53 37.1 45 16 130/75 (93) 93 Room Air Physical Exam General Appearance: WD/WN, no apparent distress, + thin Eyes: normal inspection, PERRL, EOMI, sclerae normal ENT: normal ENT inspection, hearing grossly normal, pharynx normal Neck: supple, no adenopathy, thyroid normal, no JVD, no carotid bruits, trachea midline Respiratory/Chest: chest non-tender, lungs clear, normal breath sounds, no respiratory distress, no accessory muscle use Cardiovascular: regular rate, rhythm, no edema, no gallop, no JVD, no murmur Abdomen: normal bowel sounds, non tender, soft, no organomegaly, no pulsatile mass Extremities: normal range of motion, non-tender, normal inspection, no pedal edema, no calf tenderness, normal capillary refill, pelvis stable, + pertinent finding (Left posterior thigh wound in dressing,) 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/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: 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, no motor/sensory deficits, alert, normal mood/affect, oriented x 3 Skin: normal color, warm/dry, no rash Lymphatic: no adenopathy Laboratory Results Last 24 Hours Test 12/24/17 09:28 White Blood Count 6.56 K/uL Red Blood Count 4.75 M/uL Hemoglobin 14.6 g/dL Hematocrit 42.9 % Mean Corpuscular Volume 90.3 fL Mean Corpuscular Hemoglobin 30.7 pg Mean Corpuscular Hemoglobin Concent 34.0 g/dl RDW Standard Deviation 41.3 fL RDW Coefficient of Variation 12.5 % Platelet Count 86 K/uL Mean Platelet Volume 10.3 fL Sodium Level 137 mmol/L Potassium Level 3.6 mmol/L Chloride Level 103 mmol/L Carbon Dioxide Level 28 mmol/L Anion Gap 6.0 mmol/L Blood Urea Nitrogen 14 mg/dl Creatinine 0.97 mg/dl Est Creatinine Clear Calc Drug Dose 81.9 ml/min Estimated GFR () 94.6 Estimated GFR (Non- 81.6 BUN/Creatinine Ratio 14.8 Random Glucose 144 mg/dl Calcium Level 8.8 mg/dl Magnesium Level 2.3 mg/dl Vancomycin Level Trough 7.1 mcg/ml Assessment and Plan A 67-year-old white male admitted to Dr. Jaramillo's service because of left posterior thigh abscess. left posterior thigh abscess s/p I&D, this condition will continue pain management by primary team Grade 2 change to oral antibiotics and follow-up with PCP or surgeon of the sensitivity of the wound culture Wound care has been ordered, advised patient to continue follow-up with wound care. I mentioned again to the patient need to be follow up with PCP to recheck lyme IgG and IgM in 4-6 weeks because the patient's current skin rashes may be from tick bite. although IgG IgM current checking is negative, but because of antibody formation will take 4-6 week if there is tick bit, therefore will need to be repeated. Thrombocytopenia, etiology unknown, follow up with PCP in this aspect. Bradycardia, asymptomatic, otherwise follow-up with his PCP as well Discussed with patient, answered all her questions and follow-up plan
--- NOTE | 2017-12-26 11:33 | Discharge Summary ---
Discharge Summary Dates Admission Date / Time: Dec 22, 2017 at 20:17 Discharge Date: Dec 24, 2017 Dispostion / Condition Discharge Disposition: Home Condition at Discharge: Good Principal Diagnosis (1) Abscess of leg, left Problem List (1) Thrombocytopenia Consultations / Procedures Consultations: Hospitalist Wound Nurse Procedures: Incision and drainage of LLE abscess Vaccinations: None Pending Studies / Follow-Up Final would culture Final Blood culture Preliminary negative Medication Reconciliation New Medications: Oxycodone/Acetaminophen 5MG/325MG (Percocet 5MG/325MG) Tab 1 TABLET PO Q6H PRN for Pain, #12 TAB Sulfa/Trimethoprim (Bactrim Ds 800MG/160MG) Tab 1 TAB PO BID for 7 Days, #14 TAB Continued Medications: Acetylcarnitine Hcl (Nutrient) (Acetyl L-Carnitine) 250 Mg Cap 1 CAP PO QAM Alpha-Lipoic Acid (Thioctic Ac (Alpha Lipoic Acid) 200 Mg Tab 300 MG PO QAM Bioflavonoid Products ([place]-C) 1 Tab Tab PO QPM DOSE LISTED ON MED SHEET READS FRANKLYN C 1000MG , WITH 108 MG CALCIUM Cholecalciferol (Vitamin D) 1,000 Unit Tab 1000 UNITS PO DAILY Coenzyme [id number] Oil-Vitamin (Co-Q 10 [place]-3 Fish Oil) 1 Cap Cap 200 MG PO QAM Duloxetine HCl (Cymbalta) 30 Mg Cap 30 MG PO DAILY Dutasteride (Dutasteride) 0.5 Mg Cap 1 CAP PO QAM Fish Oil ([place]-3) 1 Ea Cap 1000 MG PO QPM, CAP Magnesium (Chelated Magnesium) 100 Mg Tab 250 MG PO QAM Methylcobalamin (Methyl B-12) 1,000 Mcg Omar 1 DOSE SL QPM Tamsulosin Hcl (Flomax) 0.4 Mg Cap 0.4 MG PO QPM, CAP Zolpidem Tartrate (Ambien) 5 Mg Tab 5 MG PO HS PRN for Sleep, TAB WILL USE WHEN TRAVELS Admission HPI Per the Admitting provider: 67-year-old male who sustained an insect bite of the left lower extremity. Developed surrounding redness and swelling with abscess formation. Patient was seen in the emergency room and evaluated by Dr. Jaramillo. Patient was taken operating room for incision and drainage of left lower extremity abscess. Hospital Course (1) Abscess of leg, left Patient underwent incision and drainage of left lower extremity abscess. Patient tolerated procedure well without any difficulties. Patient was transferred to recovery room and then to medical/surgical floor for postoperative care. He was started on IV vancomycin and Zosyn. He was also started on p.o. Percocet and Tylenol as needed for pain with breakthrough IV Dilaudid. Hospitalist was consulted for comanagement given thrombocytopenia. No chemical DVT prophylaxis was recommended and just continue SCDs. Postop day #1 patient had an elevated temperature with T-max of 39.5C however there was no leukocytosis. Pain was controlled. Surrounding swelling and redness improved. Dressing was changed over packing was not. Wound care nurse was consulted for further wound management. Regular diet was tolerated and was started on his p.o. home medications of Ambien duloxetine and Flomax. On postop day #2 pain controlled no leukocytosis and afebrile. Patient was discharged home with follow-up in the wound care center for daily packing changes. Final wound culture was pending however preliminary showed no growth Discharge Instructions As given the patient Copies To Primary Care Provider: Charles Mario M.D..
== END 2017-12-24 13:50 | disposition home or self-care (01) ==
LOC: C.EDB 15:27 → C.MSN 20:17 → ENRESERV 20:28
PROVIDERS: ADMIT Surgery; ATTEND Surgery
DX: L03.116 Cellulitis of left lower limb (principal); L02.416 Cutaneous abscess of left lower limb; Z96.643 Presence of artificial hip joint, bilateral

== ENCOUNTER → 2018-05-29 | Outpatient (CLI) | payer OTHER ==
[~2018-05-29] MED LIST changes: -CIPR1TAB11 PO; +CYM/30 PO; +DUTA1CAP17 PO; -DUTA1CAP3 PO; -GLYCINE PO; -LEVO1CAP6 PO; +OXYC-57 PO; -SACC250C11 PO; -[UNRECOGNIZED DRUG - CODE] PO; -[UNRECOGNIZED DRUG - OTHER] PO
[2018-05-29 10:35] LABS: BASO % 1.2 %; BASO ABS # 0.06 K/uL (0-0.2); EOS % 1.2 %; EOS ABS # 0.06 K/uL (0-0.5); HEMATOCRIT 44.3 % (42-52); IG# 0.01 K/uL (0.00-0.02); LYMPH ABS # 1.58 K/uL (1.2-3.4); MEAN CELL VOLUME 88.4 fL (80-100); MEAN CORPUSCULAR HEMOGLOBIN 29.9 pg (25-34); MEAN CORPUSCULAR HGB CONC 33.9 g/dl (32-36); MEAN PLATELET VOLUME 10.4 fL (7.4-10.4); MONO % 7.5 %; MONO ABS # 0.37 K/uL (0.11-0.59); NEUT % 57.9 %; NEUT ABS # 2.85 K/uL (1.4-6.5); PLATELET COUNT 130 K/uL (130-400); RED CELL DISTRIBUTION WIDTH CV 12.7 % (11.5-14.5); RED CELL DISTRIBUTION WIDTH SD 40.3 fL (36.4-46.3); WHITE BLOOD COUNT 4.93 K/uL (4.8-10.8)
[2018-05-29 10:39] LABS: HEMOGLOBIN A1C 6.3 % (4.5-5.6)
[2018-05-29 11:12] LABS: ALBUMIN 3.9 gm/dl (3.4-5.0); ALKALINE PHOSPHATASE 55 U/L (45-117); ALT/SGPT 35 U/L (12-78); AST/SGOT 21 U/L (15-37); BLOOD UREA NITROGEN 20 mg/dl (7-18); CALCIUM 8.5 mg/dl (8.5-10.1); CARBON DIOXIDE 23 mmol/L (21-32); CHOLESTEROL 232 mg/dl (0-200); CREATININE 1.02 mg/dl (0.60-1.40); GLUCOSE 112 mg/dl (70-99); LDL CHOLESTEROL CALCULATED 158 mg/dl; POTASSIUM 4.2 mmol/L (3.5-5.1); SODIUM 140 mmol/L (136-145); TOTAL PROTEIN 7.1 gm/dl (6.4-8.2)
== END | disposition home or self-care (01) ==
LOC: C.LABBC 08:58
PROVIDERS: ATTEND Internal Medicine
DX: M25.50 Pain in unspecified joint (principal); E78.5 Hyperlipidemia, unspecified; R73.9 Hyperglycemia, unspecified